=== PATIENT | male | born 1955 | race Caucasian/White ===

== ENCOUNTER → 2017-01-05 | Outpatient (CLI) | payer BC ==
[~2017-01-05] MED LIST: AMLODIPINE BESYL5 MG PO; ASPIRIN PO; B-1100 MG PO; BP MED; CELEXA PO; CHOLESTEROL MED; FOLIC ACID PO; LISINOPRIL20 MG PO; MEN'S ONE DAILY1 TA1 PO; MULTI-DAY VITAM1 TAB PO; PANTOPRAZOLE SO40 MG PO; PATIENT'S PHARMACY; PRILOSEC2.5 MG PO; PROTONIX PO; VICODIN 5/500 T1 TAB PO; ZESTORETIC 20/21 TAB PO; ZOCOR PO
--- NOTE | ~2017-01-05 | CT4 ---
[facility]. [facility] A Service [facility] RADIOLOGY TEXT RESULTS PATIENT: JORGE A ANGELO LOCATION: [facility] : 53 UNIT #: [id number] AGE: [address]: Yesy Maier MD SEX: M ORDER DR: [id number] [address] [address] [id number] O MR#: [id number] Acc #: [id number] NAME: JORGE A ANGELO : 1955 SEX: M STUDY DATE/TIME: 01/05/2017 15:05 UNIT: [facility] ROOM: STUDY DESCRIPTION: CT Abd and Pelv Wo Cont Attending Physician: Yesy Maier M.D. Referring Physician: Yesy Maier M.D. Ordering Physician: Yesy Maier M.D. Primary Care Physician: Yesy Maier M.D. MEDICAL IMAGING REPORT This report is preliminary unless electronic signature is present. EXAM CT abdomen and pelvis without contrast INDICATION Bilateral lower abdomen pain since last Tuesday. Little or no urination. COMPARISON 06/19/2015 TECHNIQUE Axial 3 mm images were obtained through the abdomen and pelvis without IV or oral contrast. This CT exam was performed with one or more of the following radiation dose reduction techniques: automatic exposure control, adjustment of mA and/or kV according to patient size, and iterative reconstruction. FINDINGS The lung bases are clear. The ascending aorta is about 4 cm in maximum dimension. The liver, gallbladder, spleen, pancreas, adrenal glands and left kidney are normal. The right kidney has a nonobstructing 3 mm stone. There is no hydronephrosis and no ureteral stones are visible. The aorta is jett in size and there is no adenopathy. The bowel is normal. There is no evidence of appendicitis. The appendix is normal. The bladder and prostate gland are normal. There are degenerative changes in the lumbar spine. IMPRESSION 1. The ascending aorta is about 4 cm in transverse dimension. 2. Nonobstructing 3 mm right renal stone. 3. Normal appendix. 4. 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 [facility] A Service of [facility] RADIOLOGY TEXT RESULTS PATIENT: JORGE A ANGELO LOCATION: [facility] : 53 UNIT #: [id number] AGE: [address]: Yesy Maier MD SEX: M ORDER DR: Dictated by... Payam Mendoza M.D. THIS IS AN ELECTRONICALLY VERIFIED REPORT Payam Mendoza M.D. at 01/07/2017 6:04 AM RUSLAN/deepthi TD: 01/06/2017 05:12 JOB #: [id number] MEDICAL IMAGING REPORT Page 1 of 1
== END | disposition home or self-care (01) ==
LOC: SCT 14:59
DX: R10.9 Unspecified abdominal pain (principal); N20.0 Calculus of kidney; M47.896 Other spondylosis, lumbar region
CPT/HCPCS: 74176